=== PATIENT | female | born 1965 | race Caucasian/White ===

== ENCOUNTER 2019-01-17 07:15 | Day surgery (SDC) | payer BC ==
[~2019-01-17] VITALS: Ht 162.6 cm; Wt 113.9 kg
[~2019-01-17 07:15] MED LIST: ATOR10TA52 PO; CHOL20009 PO; INSLANTI SC; LISI40TA PO; METF-370 PO; METO1TAB9 PO; VENL37.56 PO
[2019-01-17] MEDS ORDERED: LIDOCAINE 2%HCL (LOCAL ANESTH.) INJ 20ML MDV ONE (08:15)
[2019-01-17] MEDS ORDERED: IODIXANOL 320MG/ML 100ML BTL IV ONE ×2 (08:15→08:54)
[2019-01-17] MEDS ORDERED: VERAPAMIL 2.5MG/ML INJ 2ML VIAL IV ONE (08:53)
[2019-01-17] MEDS ORDERED: ANGIOMAX 250 MG VIAL IV ONE (08:53)
[2019-01-17] MEDS ORDERED: SODIUM CHL 0.9% 0 ML ONE (08:54)
[2019-01-17] MEDS ORDERED: MIDAZOLAM HCL 1MG/1ML-2 ML VIAL ONE (08:54)
[2019-01-17] MEDS ORDERED: fentaNYL CITRATE 100 MCG/2 ML VL ONE (08:54)
[2019-01-17] MEDS ORDERED: HEPARIN SODIUM (PORCINE) 5000 UNITS/ML 1ML VIAL ONE (09:20)
== END 2019-01-17 11:37 | disposition home or self-care (01) ==
LOC: CATH 07:15
PROVIDERS: ATTEND Internal Medicine
DX: R94.39 Abnormal result of other cardiovascular function study (principal); I25.10 Atherosclerotic heart disease of native coronary artery without angina pectoris; E11.9 Type 2 diabetes mellitus without complications; E78.5 Hyperlipidemia, unspecified; Z79.899 Other long term (current) drug therapy; Z98.890 Other specified postprocedural states; Z90.12 Acquired absence of left breast and nipple
CPT/HCPCS: 93005; 93458; 93571; C1887; C1894; J1644; J2250; J3010; J7030; Q9967; 99152